=== PATIENT | male | born 1970 | race Caucasian/White ===

== ENCOUNTER 2025-01-02 06:29 | Day surgery (SDC) | payer OTHER, SELFPAY ==
[2025-01-02 14:09] LABS: Glucose - Point of Care 139 mg/dl (70-99)
== END 2025-01-02 15:49 | disposition home or self-care (01) ==
LOC: GI 06:29
PROVIDERS: ATTENDING PHYSICIAN Internal Medicine
DX: Z12.11 Encounter for screening for malignant neoplasm of colon (principal); R19.5 Other fecal abnormalities; D12.3 Benign neoplasm of transverse colon; D12.5 Benign neoplasm of sigmoid colon; D12.7 Benign neoplasm of rectosigmoid junction; K62.1 Rectal polyp
CPT/HCPCS: 45385; 45380; 82962; 88305